=== PATIENT | male | born 1980 | race Caucasian/White ===

== ENCOUNTER 2017-03-16 21:48 | Emergency (ER) | payer BC ==
--- NOTE | 2017-03-16 23:44 | ER NURSING DOCUMENTATION ---
Nurse's Notes [facility] Name:Pankaj Ruffin Age:36 yrs Sex:Male :1980 Arrival Date:03/16/2017 Time:21:48 Bed5 Private MD:No PCP, Identified Diagnosis:Metacarpal Fracture Presentation: 03/16 23:10 Notified ED Physician of patient's arrival and CC Dr. Bernal notified. mv 23:10 Acuity: IAN 4 mv 23:28 Transition of care: Home. mv 23:28 Method Of Arrival: Private Vehicle mv 23:33 Presenting complaint: Patient states: horse kicked hand. mv Triage Assessment: 23:33 General: Appears in no apparent distress, Behavior is appropriate for age. Pain: mv Complains of pain in right hand Pain currently is 3 out of 10 on a pain scale. Musculoskeletal: Circulation, motion, and sensation intact Capillary refill < 3 seconds Swelling present in right hand. Injury Description: Crush injury sustained to right hand. 23:43 Derm: Skin is intact. mv Historical: - Allergies: No known drug Allergies; - Home Meds: 1. None - PMHx: NONE; - PSHx: patellar fx; c1 fx; - Tetanus: unknown. - Ebola Screening: : No symptoms or risks identified at this time. . - Immunization history: Pneumococcal vaccine status is unknown. - Social history: Smoking status: Patient states was never smoker of tobacco. Screenin:42 Infectious Disease Risk None. Abuse screen: Denies threats or abuse. Nutritional mv screening: No deficits noted. Assessment: 23:42 See Triage Assessment done by same RN. mv Vital Signs: 23:20 BP 132 / 84; Pulse 79; Resp 20; Temp 98.2; Pulse Ox 96% on R/A; Pain 3/10; mv ED Course: 22:36 Patient arrived in ED. em2 22:36 No PCP, Identified is Private Physician. em2 23:11 Clifton Bernal MD is Attending Physician. be 23:14 Port Xray Completed. mr 23:28 angela cabral is Primary Nurse. mv 23:29 Triage completed. mv 23:31 Liban Greenberg DO is Referral Physician. be 23:42 Valuables Remains with patient. mv Administered Medications: 23:40 Drug: HYDROcodone-acetaminophen (5mg/325 mg) 1-2 tabs 1 tabs; {Note: take home back to mv be taken at home .} Route: PO; 23:41 Follow up: Response: Pharmacy closed - take home med pack mv Outcome: 23:32 Discharge ordered by . be 23:41 Discharged to home 23:41 Condition: good 23:41 Discharge Assessment: Patient awake, alert and oriented x 3. No cognitive and/or functional deficits noted. Patient verbalized understanding of disposition instructions. 23:41 Discharge instructions given to patient, Instructed on discharge instructions, follow up and referral plans. medication usage, no drinking with medication. 23:43 Patient left the ED. 03/17 12:14 Discharge F/U Call: Unable to reach: left voicemail: Signatures: Clifton Bernal MD MD be Meinking-kenneth, Mika em2 Ramez, Kate angela cabral Kennedy, Willard mr
--- NOTE | 2017-03-16 23:44 | ER PHYSICIAN DOCUMENTATION ---
Physician Documentation [facility] Name:Pankaj Ruffin Age:36 yrs Sex:Male :1980 Arrival Date:03/16/2017 Time:21:48 Bed5 Private MD:No PCP, Identified ED Clifton Avila Disposition: 03/16/17 23:32 Discharged to Home/Self Care. Impression: Metacarpal Fracture. - Condition is Good. - Discharge Instructions: METACARPAL FRACTURE Closed - FRACTURE, Hand [Closed]. - Prescriptions for Hydrocodone- Acetaminophen 5-325 mg Oral Tablet - take 1 tablet by ORAL route every 6 hours As needed; 20 tablet. - Medical Reconciliation form form. - Follow up: Liban Greenberg DO; When: Tomorrow; Reason: Recheck today's complaints. - Problem is new. - Symptoms have improved. HPI: 03/16 23:35 This 36 yrs old Male presents to ER via Private Vehicle with complaints of be Hand Injury - right. 23:35 The complaints affect the dorsum of right hand. Context: resulted from playing sports, be rodeo. Onset: The symptom(s)/episode began/occurred just prior to arrival. Historical: - Allergies: No known drug Allergies; - Home Meds: 1. None - PMHx: NONE; - PSHx: patellar fx; c1 fx; - Tetanus: unknown. - Ebola Screening: : No symptoms or risks identified at this time. . - Immunization history: Pneumococcal vaccine status is unknown. - Social history: Smoking status: Patient states was never smoker of tobacco. ROS: 23:35 MS/extremity: Positive for injury or acute deformity, deformity, swelling, tenderness. be 23:35 All other systems are negative. Exam: 23:36 Constitutional: This is a well developed, well nourished patient who is awake, alert, be and in no acute distress. Head/Face: Normocephalic, atraumatic. Eyes: Pupils equal round and reactive to light, extra-ocular motions intact. Lids and lashes normal. Conjunctiva and sclera are non-icteric and not injected. Cornea within normal limits. Periorbital areas with no swelling, redness, or edema. ENT: Nares patent. No nasal discharge, no septal abnormalities noted. Tympanic membranes are normal and external auditory canals are clear. Oropharynx with no redness, swelling, or masses, exudates, or evidence of obstruction, uvula midline. Mucous membranes moist. Neck: Trachea midline, no thyromegaly or masses palpated, and no cervical lymphadenopathy. Supple, full range of motion without nuchal rigidity, or vertebral point tenderness. No Meningismus. Chest/axilla: Normal chest wall appearance and motion. Nontender with no deformity. No lesions are appreciated. 23:36 Abdomen/GI: Soft, non-tender, with normal bowel sounds. No distension or tympany. No be guarding or rebound. No evidence of tenderness throughout. 23:36 Musculoskeletal/extremity: Extremities: grossly normal except: noted in the dorsum of right hand: deformity, pain, swelling, tenderness. 23:36 Skin: Exam negative for acute changes. Vital Signs: 23:20 BP 132 / 84; Pulse 79; Resp 20; Temp 98.2; Pulse Ox 96% on R/A; Pain 3/10; mv MDM: 23:11 Patient medically screened. be 23:37 Differential diagnosis: closed fracture. Data reviewed: vital signs, nurses notes, be radiologic studies, plain films, and as a result, I will discharge patient, prescribe pain medication, hydrocodone. 03/18 17:22 Order name: HAND; [address] [place] [id number] EDMS 03/16 23:12 Order name: ORTHO: Ice Pack; Complete Time: 23:41 be Dispensed Medications: 23:40 Drug: HYDROcodone-acetaminophen (5mg/325 mg) 1-2 tabs 1 tabs; {Note: take home back to be taken at home .} Route: PO; 23:41 Follow up: Response: Pharmacy closed - take home med pack mv Signatures: Clifton Bernal MD MD be vogel, margaux mv
--- NOTE | 2017-03-18 11:28 | RADIOLOGY REPORT ---
Three views of the right hand demonstrate an oblique fracture of the shaft of the right fourth metacarpal. There is approximately 15 degrees of apex dorsal angulation. There is approximately 3 mm of dorsal displacement. No other abnormality is identified. IMPRESSION: Displaced and angulated right fourth metacarpal fracture. MTDD
== END 2017-03-16 23:44 | disposition home or self-care (01) ==
LOC: ER 21:48
DX: S62.324A Displaced fracture of shaft of fourth metacarpal bone, right hand, initial encounter for closed fracture (principal); W55.12XA Struck by horse, initial encounter; Y92.838 Other recreation area as the place of occurrence of the external cause
CPT/HCPCS: 99283

== ENCOUNTER 2017-03-18 10:06 | Day surgery (SDC) | payer BC ==
[2017-03-18] MEDS ORDERED: ceFAZolin 1 GM in NORMAL SALINE MINI-BAG+ 100 ML IV PRN ×3 (10:14→13:55)
[2017-03-18] MEDS ORDERED: LIDOCAINE HCL 1% 20 ML VIAL SUBCUT PRN ×2 (10:59→13:55)
[2017-03-18] MEDS ORDERED: MIDAZOLAM HCL 2 MG/2 ML SYR IV PRN ×2 (10:59→13:55)
[2017-03-18] MEDS ORDERED: FAMOTIDINE IN SALINE, ISO-OSM 20 MG/50 ML PIGGYBACK IV SCH ×2 (11:00→13:55)
[2017-03-18] MEDS ORDERED: LACTATED RINGERS 1,000 ML IV SCH ×3 (11:00→13:55)
[2017-03-18] MEDS ORDERED: ACETAMINOPHEN 1,000 MG/100 ML VIAL IV SCH ×2 (11:00→13:55)
[2017-03-18] MEDS ORDERED: MIDAZOLAM HCL 2 MG/2 ML VIAL ONE (11:16)
[2017-03-18] MEDS ORDERED: ceFAZolin 1 GM/10 ML VIAL ONE (11:17)
[2017-03-18] MEDS ORDERED: BUPIVACAINE/EPI 0.5% 50 ML VIAL INFILTRAT ONE (11:19)
[2017-03-18] MEDS ORDERED: BUPIVACAINE HCL/PF 0.25% 10 ML VIAL INJ ONE (11:19)
[2017-03-18] MEDS ORDERED: SUCCINYLCHOLINE CHLORIDE 200 MG/10 ML VIAL ONE (11:20)
[2017-03-18] MEDS ORDERED: BACITRACIN 14 APP/14 GM TUBE TOPICAL ONE (11:21)
[2017-03-18] MEDS ORDERED: FENTANYL 100 MCG/2 ML VIAL ONE (11:21)
[2017-03-18] MEDS ORDERED: ONDANSETRON HCL 4 MG/2 ML VIAL ONE (11:21)
[2017-03-18] MEDS ORDERED: ROCURONIUM BROMIDE 50 MG/5 ML VIAL IV ONE (11:21)
[2017-03-18] MEDS ORDERED: DEXAMETHASONE 4 MG/ML VIAL ONE (11:22)
[2017-03-18] MEDS ORDERED: KETOROLAC TROMETHAMINE 30 MG/ML VIAL ONE (11:22)
[2017-03-18] MEDS ORDERED: SEVOFLURANE 250 ML BTL INHALATION ONE (12:58)
[2017-03-18] MEDS ORDERED: MORPHINE SULFATE 10 MG/ML SYR IV PRN (13:55)
[2017-03-18] MEDS ORDERED: FENTANYL 100 MCG/2 ML VIAL IV PRN (13:55)
[2017-03-18] MEDS ORDERED: ONDANSETRON HCL 4 MG/2 ML VIAL IV PRN (13:55)
[2017-03-18 14:02] VITALS: TEMP 96.8
--- NOTE | 2017-03-18 14:35 | OPERATIVE REPORT ---
Preoperative diagnosis: Right fourth metacarpal fracture Postoperative diagnosis: Same Procedure: Right fourth metacarpal open reduction internal fixation. Primary surgeon: Dr. Liban Greenberg Anesthesia: General Estimated blood loss: Minimal Total tourniquet time: 90 minutes Procedure note: The patient is brought to the OR suite and after administration of general anesthesia the left upper extremity was prepped and draped in a sterile fashion. Fluoroscopic imaging was utilized for optimal incisional placement. The incision site was injected with half percent bupivacaine with epinephrine prior to incision. The decision was made over the dorsum of the hand directly over the fourth metacarpal. Dissection was carried down bluntly avoiding all neurovascular structures. The fracture was evident just deep to the extensor tendons. Fracture hematoma material was removed with suction, curette and irrigation with bacitracin infused normal saline. The fracture was reduced with sharp bone reduction clamps and 2 K wires were inserted. A 6-hole plate was slid over the top of the K wires. Utilizing a lag screw by technique 3 screws were inserted through the plate and across the fracture site. The remainder of the holes in the plate were drilled and filled with locking screws. Fluoroscopic intensification confirmed anatomic reduction of the fracture and optimal hardware placement. The hand was copiously irrigated with bacitracin infused normal saline and then closed in a stepwise fashion utilizing 3-0 Vicryl followed by 3-0 Monocryl subcutaneously followed by Dermabond on the skin. The incision site and hand was dressed with a 4 x 4, cast padding and a well-padded plaster splint wrapped with an Cecilio bandage in the intrinsic plus position. The patient was transferred from the OR suite to the recovery room in stable condition. KARINA
[2017-03-18 14:56] VITALS: BP 129/76; PULSE 71; RESP 14; O2SAT 90
--- NOTE | 2017-03-18 15:20 | RADIOLOGY REPORT ---
Three views of the right hand from the C-Arm in the operating room are compared with prior films dated 03/16/2017. There has been interval open reduction and internal fixation of the fourth metacarpal fracture, which is secured with a plate and multiple screws. IMPRESSION: Interval open reduction and internal fixation of the right fourth metacarpal fracture. [facility]
--- NOTE | 2017-04-02 15:24 | PREOPERATIVE H&P ---
History of Present Illness (Liban Greenberg ; 03/17/2017 10:03 AM) The patient is a 36 year old male. Patient presents complaining of right hand pain. 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 He has a extremely high demand job with respect to hand function. He was seen last night at the [employer] by myself and a fourth metacarpal fracture was diagnosed on physical examination and the patient was placed in a splint in the intrinsic plus position. He presents today for follow -up. Allergies (Taryn Anderson RN; 03/17/2017 9:55 AM) No Known Drug Epbrgstfy12/11/2017 Social History (Taryn Anderson RN; 03/17/2017 9:55 AM) Alcohol Use Drinks Socially. No drug use Tobacco Use Never smoker. Medication History (Taryn Anderson RN; 03/17/2017 9:55 AM) No Current Medications Review of Systems (Liban Greenberg ; 03/17/2017 10:03 AM) General Not Present- Chills and Fever. Skin Not Present- Erythema, Skin Color Changes and Skin Problems. HEENT Not Present- Sleep Apnea. Neck Not Present- Neck Pain. Respiratory Not Present- Cough and Shortness of Breath. Cardiovascular Not Present- Chest Pain, Difficulty Breathing On Exertion, Fainting and Leg Pain and/or Swelling. Gastrointestinal Not Present- Abdominal Pain, Nausea and Vomiting. Male Genitourinary Not Present- Painful Urination and Urethral Discharge. Musculoskeletal Not Present- Decreased Range of Motion, Joint Pain, Joint Stiffness, Joint Swelling, Muscle Pain and Muscle Weakness. Neurological Not Present- Dizziness, Focal Neurological Symptoms, Numbness in extremities, Trouble walking and Weakness. Psychiatric Not Present- Anorexia, Anxiety and Depression. Endocrine Not Present- Weight Loss. Hematology Not Present- Bleeding Problems, DVT and Easy Bruising. Vitals (Taryn Anderson RN; 03/17/2017 9:55 AM) 03/17/2017 9:54 AM Weight: 160 lb Height: 71in Weight was reported by patient. Height was reported by patient. Body Surface Area: 1.92 m Body Mass Index: 22.32 kg/m Temp.: 98.1F Pulse: 76 (Regular) Resp.: 16 (Unlabored) BP: 126/76 (Sitting, Left Arm, Standard) Physical Exam (Liban Greenberg DO; 03/17/2017 10:07 AM) The physical exam findings are as follows: Note:Physical examination of the right hand demonstrates positive swelling over the dorsum of the hand. Positive crepitance with palpation over the fourth metacarpal. Shortening of the ring finger versus contralateral is noted grossly. Malrotation is noted when the patient makes a fist. Normal sensation and adequate perfusion. Plain film x-rays demonstrate a midshaft oblique fracture of the fourth metacarpal with 7 mm of shortening. There is no significant angulation or malalignment on x-rays. Assessment & Plan (Liban Greenberg DO; 03/17/2017 10:08 AM) Closed displaced fracture of shaft of fourth metacarpal bone of right hand, initial encounter (S62.324A) Impression: After educating the patient regarding treatment options with their associated risks and benefits, the patient elected to proceed with surgical treatment of the injury/pathology with RIGHT 4TH METACARPAL OPEN REDUCITON INTERNAL FIXATION. The risks and benefits of the specific procedure were explained and all questions and concerns were addressed and answered. Post operative rehabilitation requirements and expectations for optimal outcome were reviewed and the patient confirmed understanding these and committed to compliance. All questions answered. Signed by Liban Greenberg DO (03/17/2017 10:09 AM) There are no interval changes. Signed Liban Greenberg DO 03/18/2017. KARINA
== END 2017-03-18 15:15 | disposition home or self-care (01) ==
LOC: SDS 10:06 → MERGE 10:06 → SDS 15:15
PROVIDERS: ATTEND Orthopaedic Surgery
DX: S62.324A Displaced fracture of shaft of fourth metacarpal bone, right hand, initial encounter for closed fracture (principal); X50.0XXA Overexertion from strenuous movement or load, initial encounter
CPT/HCPCS: 76000; C1713; J0690; J1885; J2250; J2405; J3010; S0020